=== PATIENT | female | born 1975 | race Caucasian/White ===

== ENCOUNTER 2018-03-18 21:45 | Emergency (ER) | payer OTHER | END 2018-03-19 01:39 | disposition home or self-care (01) | LOC: FTE 21:45 | DX: J20.9 Acute bronchitis, unspecified (principal) | CPT/HCPCS: 99283 ==

== ENCOUNTER 2018-10-30 06:02 | Emergency (ER) | payer OTHER ==
[2018-10-30 07:07] LABS: URINE BLOOD (Dip) POC Trace-lysed (NEGATIVE); URINE GLUCOSE (Dip) POC Negative (NEGATIVE); URINE KETONES (Dip) POC Negative (NEGATIVE); URINE LEUKOCYTE EST (Dip) POC 2+ (NEGATIVE); URINE NITRITE (Dip) POC Negative (NEGATIVE); URINE TOTAL PROTEIN POC Trace (NEGATIVE)
== END 2018-10-30 07:34 | disposition home or self-care (01) ==
LOC: FTE 06:02
DX: N76.0 Acute vaginitis (principal); N39.0 Urinary tract infection, site not specified
CPT/HCPCS: 81003; 81025; 87591; 99283